=== PATIENT | male | born 1945 | race Caucasian/White ===

== ENCOUNTER 2016-10-18 05:01 | Day surgery (SDC) | payer BC ==
[~2016-10-18 05:01] MED LIST: ACET500CAP PO; ANDROGEL1.25 GM TOP; APRES25 PO; APRES50 PO; ASAB PO; ATV1 PO; BENTYL10 PO; BENTYL20 PO; CAT1 PO; CIP5 PO; CLARIT10 PO; COLCH6 PO; CORDARONE PO; COZ25 PO; COZ50 PO; CRESTOR10 PO; CRESTOR20 MG PO; CYMBALTA30 PO; DIABETA5 PO; DIOV160 PO; DIOV80 PO; FISH OIL1200 MG PO; FISH-EPA1000 MG PO; GLUCOPHAGE1000 MG PO; GLUCPH PO; IND25 PO; IRON325 MG PO; LANTUS SC; LOP100 PO; LOP50 PO; LOPID6 PO; LYRICA25 PO; METHOC500B PO; NITROII20C TOP; NOVOLOG SC; NOVOPEN SC; PACERONE200 MG PO; PLAVIX PO; REQUIP5 PO; T PO; TOUJEO SC; TRICOR145 PO; VITAMIN D1000 UNI1 PO; VITAMIN D2000 UNIT PO; VITC500 PO; Z100 PO; Z300 PO; ZANTAC150 MG PO; ZANTAC300 MG PO
== END 2016-10-18 09:39 | disposition home or self-care (01) ==
LOC: SDC 05:01
PROVIDERS: Orthopaedic Surgery
PROC: 3E0S3BZ Introduction of Anesthetic Agent into Epidural Space, Percutaneous Approach (ICD-10-PCS; 2016-10-18)
PROC: 3E0S33Z Introduction of Anti-inflammatory into Epidural Space, Percutaneous Approach (ICD-10-PCS; principal; 2016-10-18 07:15)
DX: M54.17 Radiculopathy, lumbosacral region (principal); E11.22 Type 2 diabetes mellitus with diabetic chronic kidney disease; N18.3 Chronic kidney disease, stage 3 (moderate); Z91.041 Radiographic dye allergy status; Z88.8 Allergy status to other drugs, medicaments and biological substances; Z79.82 Long term (current) use of aspirin; Z79.899 Other long term (current) drug therapy; Z79.4 Long term (current) use of insulin; Z86.73 Personal history of transient ischemic attack (TIA), and cerebral infarction without residual deficits; Z98.890 Other specified postprocedural states; Z98.41 Cataract extraction status, right eye; Z98.42 Cataract extraction status, left eye; Z90.49 Acquired absence of other specified parts of digestive tract
CPT/HCPCS: 82962; J1040; J2250; J3010; Q9967